=== PATIENT | male | born 1955 | race Caucasian/White ===

== ENCOUNTER → 2020-09-05 13:57 | Outpatient (CLI) | payer OTHER, SELFPAY | PROVIDERS: PCP Internal Medicine | DX: L12.1 Cicatricial pemphigoid (principal); Z51.81 Encounter for therapeutic drug level monitoring | CPT/HCPCS: 36415; 86769 ==

== ENCOUNTER → 2021-07-28 | Outpatient (CLI) | payer BC, SELFPAY ==
[2021-07-28 09:29] VITALS: BP 168/93; PULSE 92; RESP 16; TEMP 36.2; O2SAT 97; BMI 31.7
[2021-07-28] MEDS: 0.9% NaCl Peripheral Flush Adult/Peds IV (09:37)
[2021-07-28] MEDS: Acetaminophen 325 MG Tablet 650 MG PO (09:46)
[2021-07-28] MEDS: DiphenhydrAMINE 50 MG/ML Syringe 25 MG IV (09:46)
[2021-07-28] MEDS: 0.9% NaCl IVPB Med Flush (250 mL) 15 ML IV (10:20)
[2021-07-28] MEDS: Immune Globulin 20 gm Premixed Solution 43.5 BAG IV (10:25)
[2021-07-28] MEDS: Immune Globulin 20 gm Premixed Solution 218 BAG IV (12:34)
[2021-07-28] MEDS: Immune Globulin 20 gm Premixed Solution 305 BAG IV (13:45)
== END | disposition home or self-care (01) ==
LOC: MEDOUTP 08:58
PROVIDERS: PCP Internal Medicine
DX: L12.1 Cicatricial pemphigoid (principal); H02.015 Cicatricial entropion of left lower eyelid
CPT/HCPCS: 96365; 96366 ×3; 96375; J7050; A4216; J1568

== ENCOUNTER → 2021-07-29 | Outpatient (CLI) | payer BC, SELFPAY ==
[2021-07-29 09:06] VITALS: BP 159/87; PULSE 77; RESP 16; TEMP 36; O2SAT 98
[2021-07-29] MEDS: 0.9% NaCl Peripheral Flush Adult/Peds IV (09:10)
[2021-07-29] MEDS: 0.9% NaCl IVPB Med Flush (250 mL) 15 ML IV (09:26)
[2021-07-29] MEDS: DiphenhydrAMINE 50 MG/ML Syringe 25 MG IV (09:28)
[2021-07-29] MEDS: Immune Globulin 20 gm Premixed Solution 43.5 BAG IV (09:59)
[2021-07-29] MEDS: Immune Globulin 20 gm Premixed Solution 174 BAG IV (12:04)
[2021-07-29] MEDS: Immune Globulin 10 gm Premixed Solution 261 BAG IV (13:03)
[2021-07-29] MEDS: Immune Globulin 5 GM Premixed Solution 305 BAG IV (13:35)
[2021-07-29 13:47] VITALS: BP 153/86; PULSE 82; RESP 12; TEMP 35.9; O2SAT 97
== END | disposition home or self-care (01) ==
LOC: MEDOUTP 08:59
PROVIDERS: PCP Internal Medicine
DX: L12.1 Cicatricial pemphigoid (principal); H02.015 Cicatricial entropion of left lower eyelid
CPT/HCPCS: 96365; 96366 ×4; 96375; J7050; A4216; J1568

== ENCOUNTER → 2021-08-28 | Outpatient (CLI) | payer BC, SELFPAY ==
[2021-08-28 09:17] VITALS: BP 161/94; PULSE 84; RESP 12; TEMP 36.8; O2SAT 100; BMI 32.0
[2021-08-28] MEDS: 0.9% NaCl Peripheral Flush Adult/Peds IV (09:29)
[2021-08-28] MEDS: Acetaminophen 325 MG Tablet 650 MG PO (09:35)
[2021-08-28] MEDS: DiphenhydrAMINE 50 MG/ML Syringe 25 MG IV (09:36)
[2021-08-28] MEDS: 0.9% NaCl IVPB Med Flush (250 mL) 15 ML IV (09:45)
[2021-08-28] MEDS: Immune Globulin 20 gm Premixed Solution 43.5 BAG IV (10:11)
[2021-08-28] MEDS: Immune Globulin 20 gm Premixed Solution 174 BAG IV ×2 (12:13→13:25)
== END | disposition home or self-care (01) ==
PROVIDERS: PCP Internal Medicine
DX: L12.1 Cicatricial pemphigoid (principal); H02.015 Cicatricial entropion of left lower eyelid
CPT/HCPCS: 96365; 96366; J7050; A4216; J1568

== ENCOUNTER → 2021-08-29 | Outpatient (CLI) | payer BC, SELFPAY ==
[2021-08-29 09:03] VITALS: BP 154/76; RESP 14; TEMP 36.2; O2SAT 100; BMI 32.0
[2021-08-29] MEDS: 0.9% NaCl IVPB Med Flush (250 mL) 15 ML IV (09:21)
[2021-08-29] MEDS: DiphenhydrAMINE 50 MG/ML Syringe 25 MG IV (09:25)
[2021-08-29] MEDS: Immune Globulin 20 gm Premixed Solution 43.5 BAG IV (09:53)
[2021-08-29] MEDS: Immune Globulin 20 gm Premixed Solution 218 BAG IV (11:53)
[2021-08-29] MEDS: Immune Globulin 10 gm Premixed Solution 43.5 BAG IV (12:59)
[2021-08-29] MEDS: Immune Globulin 5 GM Premixed Solution 305 BAG IV (13:20)
== END | disposition home or self-care (01) ==
PROVIDERS: PCP Internal Medicine
DX: L12.1 Cicatricial pemphigoid (principal); H02.015 Cicatricial entropion of left lower eyelid
CPT/HCPCS: 96365; 96366; 96375; J7050; A4216; J1568

== ENCOUNTER → 2021-09-25 | Outpatient (CLI) | payer BC, SELFPAY ==
[2021-09-25] MEDS: 0.9% NaCl Peripheral Flush Adult/Peds IV (09:10)
[2021-09-25] MEDS: Acetaminophen 325 MG Tablet 650 MG PO (09:17)
[2021-09-25] MEDS: DiphenhydrAMINE 50 MG/ML Syringe 25 MG IV (09:20)
[2021-09-25] MEDS: 0.9% NaCl IVPB Med Flush (250 mL) 15 ML IV (09:20)
[2021-09-25 09:27] VITALS: BP 147/92; PULSE 71; RESP 16; TEMP 36.6; O2SAT 100; BMI 31.2
[2021-09-25] MEDS: Immune Globulin 20 gm Premixed Solution 43.5 BAG IV (10:02)
[2021-09-25] MEDS: Immune Globulin 20 gm Premixed Solution 174 BAG IV (12:00)
[2021-09-25] MEDS: Immune Globulin 20 gm Premixed Solution 261 BAG IV (13:04)
[2021-09-25 14:05] VITALS: BP 136/83; PULSE 75
== END | disposition home or self-care (01) ==
LOC: MEDOUTP 08:53
PROVIDERS: PCP Internal Medicine
DX: L12.1 Cicatricial pemphigoid (principal); H02.015 Cicatricial entropion of left lower eyelid
CPT/HCPCS: 96365; 96366; 96375; J7050; A4216; J1568

== ENCOUNTER → 2021-09-26 | Outpatient (CLI) | payer BC, SELFPAY ==
[2021-09-26 09:16] VITALS: BP 149/84; PULSE 74; RESP 16; TEMP 36.9; O2SAT 98
[2021-09-26] MEDS: 0.9% NaCl Peripheral Flush Adult/Peds IV (09:16)
[2021-09-26] MEDS: DiphenhydrAMINE 50 MG/ML Syringe 25 MG IV (09:24)
[2021-09-26] MEDS: Immune Globulin 20 gm Premixed Solution 43.5 BAG IV (09:50)
[2021-09-26] MEDS: Immune Globulin 20 gm Premixed Solution 174 BAG IV (11:49)
[2021-09-26] MEDS: Immune Globulin 10 gm Premixed Solution 261 BAG IV (12:49)
[2021-09-26] MEDS: Immune Globulin 5 GM Premixed Solution 305 BAG IV (13:14)
== END | disposition home or self-care (01) ==
LOC: MEDOUTP 08:57
PROVIDERS: PCP Internal Medicine
DX: L12.1 Cicatricial pemphigoid (principal); H02.015 Cicatricial entropion of left lower eyelid
CPT/HCPCS: 96365; 96366; J7050; A4216; J1568

== ENCOUNTER → 2021-10-23 | Outpatient (CLI) | payer BC, SELFPAY ==
[2021-10-23 09:15] VITALS: BP 150/81; PULSE 73; RESP 14; TEMP 36.2; O2SAT 99; BMI 31.7
[2021-10-23] MEDS: 0.9% NaCl Peripheral Flush Adult/Peds IV ×2 (09:15→13:48)
[2021-10-23] MEDS: 0.9% NaCl IVPB Med Flush (250 mL) 15 ML IV (09:21)
[2021-10-23] MEDS: Acetaminophen 325 MG Tablet 650 MG PO (09:22)
[2021-10-23] MEDS: DiphenhydrAMINE 50 MG/ML Syringe 25 MG IV (09:23)
[2021-10-23] MEDS: Immune Globulin 20 gm Premixed Solution 43.5 BAG IV (09:52)
[2021-10-23] MEDS: Immune Globulin 20 gm Premixed Solution 218 BAG IV (12:01)
[2021-10-23] MEDS: Immune Globulin 20 gm Premixed Solution 305 BAG IV (12:54)
== END | disposition home or self-care (01) ==
PROVIDERS: PCP Internal Medicine; Referring Provider Dermatology; Visit Provider Dermatology
DX: L12.1 Cicatricial pemphigoid (principal); H02.015 Cicatricial entropion of left lower eyelid
CPT/HCPCS: 96365; 96366 ×3; J7050; A4216; J1568

== ENCOUNTER → 2021-10-24 | Outpatient (CLI) | payer BC, SELFPAY ==
[2021-10-24] MEDS: 0.9% NaCl Peripheral Flush Adult/Peds IV (09:14)
[2021-10-24] MEDS: 0.9% NaCl IVPB Med Flush (250 mL) 15 ML IV (09:15)
[2021-10-24] MEDS: DiphenhydrAMINE 50 MG/ML Syringe 25 MG IV (09:15)
[2021-10-24 09:21] VITALS: BP 161/93; PULSE 68; RESP 16; TEMP 35.8; O2SAT 98; BMI 31.7
[2021-10-24] MEDS: Immune Globulin 20 gm Premixed Solution 43.5 BAG IV (09:43)
[2021-10-24] MEDS: Immune Globulin 20 gm Premixed Solution 174 BAG IV (11:47)
[2021-10-24] MEDS: Immune Globulin 10 gm Premixed Solution 261 BAG IV (12:49)
[2021-10-24] MEDS: Immune Globulin 5 GM Premixed Solution 348 BAG IV (13:17)
== END | disposition home or self-care (01) ==
PROVIDERS: PCP Internal Medicine; Referring Provider Dermatology; Visit Provider Dermatology
DX: L12.1 Cicatricial pemphigoid (principal); H02.015 Cicatricial entropion of left lower eyelid
CPT/HCPCS: 96365; 96366 ×4; 96375; J7050; A4216; J1568

== ENCOUNTER → 2021-11-20 | Outpatient (CLI) | payer MEDICARE, OTHER, SELFPAY ==
[2021-11-20] MEDS: 0.9% NaCl IVPB Med Flush (250 mL) 15 ML IV (10:01)
[2021-11-20] MEDS: 0.9% NaCl Peripheral Flush Adult/Peds IV (10:01)
[2021-11-20] MEDS: Acetaminophen 325 MG Tablet 650 MG PO (10:02)
[2021-11-20] MEDS: DiphenhydrAMINE 50 MG/ML Syringe 25 MG IV (10:14)
[2021-11-20 10:20] VITALS: BP 150/90; PULSE 80; RESP 16; TEMP 36.8; O2SAT 96; BMI 32.7
[2021-11-20] MEDS: Immune Globulin 20 gm Premixed Solution 43.5 BAG IV (10:37)
[2021-11-20] MEDS: Immune Globulin 20 gm Premixed Solution 174 BAG IV (12:37)
[2021-11-20] MEDS: Immune Globulin 20 gm Premixed Solution 261 BAG IV (13:35)
== END | disposition home or self-care (01) ==
PROVIDERS: PCP Internal Medicine; Referring Provider Dermatology; Visit Provider Dermatology
DX: L12.1 Cicatricial pemphigoid (principal); H02.015 Cicatricial entropion of left lower eyelid
CPT/HCPCS: 96365; 96366 ×3; 96375; J7050; A4216; J1568

== ENCOUNTER → 2021-11-21 | Outpatient (CLI) | payer MEDICARE, OTHER, SELFPAY ==
[2021-11-21] MEDS: DiphenhydrAMINE 50 MG/ML Syringe 25 MG IV (09:21)
[2021-11-21] MEDS: 0.9% NaCl Peripheral Flush Adult/Peds IV (09:21)
[2021-11-21] MEDS: 0.9% NaCl IVPB Med Flush (250 mL) 15 ML IV (09:21)
[2021-11-21 09:28] VITALS: BP 140/80; PULSE 75; RESP 16; TEMP 36.5; O2SAT 98; BMI 31.8
[2021-11-21] MEDS: Immune Globulin 20 gm Premixed Solution 43.5 BAG IV (09:55)
[2021-11-21] MEDS: Immune Globulin 20 gm Premixed Solution 218 BAG IV (11:58)
[2021-11-21] MEDS: Immune Globulin 10 gm Premixed Solution 305 BAG IV (13:02)
[2021-11-21] MEDS: Immune Globulin 5 GM Premixed Solution 348 BAG IV (13:27)
[2021-11-21 14:34] VITALS: BP 142/74; PULSE 81
[2021-11-21 14:44] LABS: Hematocrit 38.2 % (40-54); Hemoglobin 13.3 g/dL (13.0-16.5); Mean Corp Hgb Conc 34.8 g/dL (32-36); Mean Corpuscular Hgb 31.1 pg (27.0-32.0); Mean Corpuscular Volume 89.3 fL (80-94); Mean Platelet Vol. 10.9 fl (6.2-12.0); Platelet Count 184 K/mm3 (150-450); RBC Distribution Width CV 13.6 % (11.6-14.6); RBC Distribution Width SD 44.2 fl (35.1-43.9); Red Blood Count 4.28 M/mm3 (4.6-6.2); White Blood Count 3.5 K/mm3 (4.4-11.0)
[2021-11-21 15:35] LABS: ALB/GLOB Ratio 0.5 RATIO (0.9-2.4); AST(SGOT) 28 U/L (15-37); Alanine Aminotransfer ALT/SGPT 40 U/L (16-61); Albumin, Serum 3.2 g/dL (3.2-5.0); Alkaline Phosphatase 70 U/L (45-117); Anion Gap 7 (5-15); BUN 13 mg/dL (7-18); BUN/Creat Ratio 10.7 RATIO (10-20); Calcium,Total 8.5 mg/dL (8.5-10.1); Chloride 107 mmol/L (98-107); Creatinine, Serum 1.21 mg/dL (0.70-1.30); EST Glomerular Filtration Rate 64 mL/min (>60); Est Glom Filt Rate - Afr Amer 77 mL/min (>60); Estimated Creatinine Clearance 75.72 ml/min; Globulin 6.2 g/dL (2.2-4.2); Glucose 204 mg/dL (74-106); Potassium 3.8 mmol/L (3.5-5.1); Protein, Total 9.4 g/dL (6.4-8.2); Sodium Level 138 mmol/L (136-145)
[2021-11-26 00:06] LABS: QNTFERON TB Mitogen Value 3.36 IU/mL (.); QNTFERON TB Nil Value 0 IU/mL (.); QNTFERON TB1+ Ag Value 0.03 IU/mL (.); QNTFERON TB2+ Ag Value 0 IU/mL (.)
[2021-11-26 11:47] LABS: QNTIFERON TB Positive Criteria Negative (Negative)
== END | disposition home or self-care (01) ==
PROVIDERS: PCP Internal Medicine; Referring Provider Dermatology; Visit Provider Dermatology
DX: L12.1 Cicatricial pemphigoid (principal); Z51.81 Encounter for therapeutic drug level monitoring
CPT/HCPCS: 96365; 96366 ×3; 96375; 80053; 85027; 86480; J7040; J7050; A4216; J1568

== ENCOUNTER → 2021-12-11 | Outpatient (CLI) | payer MEDICARE, OTHER, SELFPAY ==
[2021-12-11] MEDS: 0.9% NaCl Peripheral Flush Adult/Peds IV (10:26)
[2021-12-11] MEDS: Acetaminophen 325 MG Tablet 650 MG PO (10:27)
[2021-12-11] MEDS: DiphenhydrAMINE 25 MG Capsule PO (10:27)
[2021-12-11 10:32] VITALS: BP 157/95; PULSE 87; RESP 16; TEMP 36.6; O2SAT 98; BMI 32.1
[2021-12-11] MEDS: predniSONE 20 MG Tablet 40 MG PO (11:35)
[2021-12-11] MEDS: 0.9% NaCl IVPB Med Flush (250 mL) 15 ML IV (11:47)
[2021-12-11 15:13] VITALS: BP 143/83; PULSE 78; TEMP 36.6
== END | disposition home or self-care (01) ==
PROVIDERS: PCP Internal Medicine; Referring Provider Dermatology; Visit Provider Dermatology
DX: L12.1 Cicatricial pemphigoid (principal)
CPT/HCPCS: 96413; J7050; A4216; Q5115

== ENCOUNTER → 2021-12-18 | Outpatient (CLI) | payer MEDICARE, OTHER, SELFPAY ==
[2021-12-18 09:03] VITALS: BP 145/89; PULSE 78; RESP 16; TEMP 36.1; O2SAT 98; BMI 32.1
[2021-12-18] MEDS: 0.9% NaCl Peripheral Flush Adult/Peds IV (09:25)
[2021-12-18] MEDS: 0.9% NaCl IVPB Med Flush (250 mL) 15 ML IV (09:25)
[2021-12-18] MEDS: DiphenhydrAMINE 50 MG/ML Syringe 25 MG IV (09:25)
[2021-12-18] MEDS: Immune Globulin 20 gm Premixed Solution 43.5 BAG IV (09:50)
[2021-12-18] MEDS: Immune Globulin 20 gm Premixed Solution 218 BAG IV (11:54)
[2021-12-18] MEDS: Immune Globulin 20 gm Premixed Solution 305 BAG IV (12:54)
== END | disposition home or self-care (01) ==
PROVIDERS: PCP Internal Medicine; Referring Provider Dermatology; Visit Provider Dermatology
DX: L12.1 Cicatricial pemphigoid (principal); H02.015 Cicatricial entropion of left lower eyelid
CPT/HCPCS: 96365; 96366 ×3; J7040; J7050; A4216; J1568

== ENCOUNTER → 2021-12-19 | Outpatient (CLI) | payer MEDICARE, OTHER, SELFPAY ==
[2021-12-19] MEDS: 0.9% NaCl Peripheral Flush Adult/Peds IV (09:09)
[2021-12-19] MEDS: 0.9% NaCl IVPB Med Flush (250 mL) 15 ML IV (09:10)
[2021-12-19] MEDS: DiphenhydrAMINE 50 MG/ML Syringe 25 MG IV (09:10)
[2021-12-19 09:16] VITALS: BP 149/86; PULSE 77; RESP 16; TEMP 36.4; O2SAT 99; BMI 31.7
[2021-12-19] MEDS: Immune Globulin 20 gm Premixed Solution 43.5 BAG IV (09:49)
[2021-12-19] MEDS: Immune Globulin 20 gm Premixed Solution 174 BAG IV (11:54)
[2021-12-19] MEDS: Immune Globulin 10 gm Premixed Solution 261 BAG IV (13:06)
[2021-12-19] MEDS: Immune Globulin 5 GM Premixed Solution 43.5 BAG IV (13:32)
[2021-12-19 14:31] VITALS: BP 149/78; PULSE 83; RESP 16; TEMP 36.3; O2SAT 100
== END | disposition home or self-care (01) ==
PROVIDERS: PCP Internal Medicine; Referring Provider Dermatology; Visit Provider Dermatology
DX: L12.1 Cicatricial pemphigoid (principal); H02.015 Cicatricial entropion of left lower eyelid
CPT/HCPCS: 96365; 96366 ×4; 96375; J7040; J7050; A4216; J1568

== ENCOUNTER → 2022-01-15 | Outpatient (CLI) | payer MEDICARE, OTHER, SELFPAY ==
[2022-01-15 09:08] VITALS: BP 163/93; PULSE 80; RESP 16; TEMP 37; O2SAT 97; BMI 31.8
[2022-01-15] MEDS: Acetaminophen 325 MG Tablet 650 MG PO (09:25)
[2022-01-15] MEDS: DiphenhydrAMINE 50 MG/ML Syringe 25 MG IV (09:50)
[2022-01-15] MEDS: Immune Globulin 20 gm Premixed Solution 43.5 BAG IV (10:03)
[2022-01-15] MEDS: 0.9% NaCl Peripheral Flush Adult/Peds IV (10:05)
[2022-01-15] MEDS: amLODIPine 5 MG Tablet PO (10:50)
[2022-01-15] MEDS: Immune Globulin 20 gm Premixed Solution 174 BAG IV (12:00)
[2022-01-15] MEDS: Immune Globulin 20 gm Premixed Solution 261 BAG IV (13:05)
[2022-01-15 14:37] VITALS: BP 135/82; PULSE 74; RESP 16; TEMP 36.8; O2SAT 97
== END | disposition home or self-care (01) ==
PROVIDERS: PCP Internal Medicine; Referring Provider Dermatology; Visit Provider Dermatology
DX: L12.1 Cicatricial pemphigoid (principal); H02.015 Cicatricial entropion of left lower eyelid
CPT/HCPCS: 96375; 96365; 96366 ×2; J7040; A4216; J1568

== ENCOUNTER → 2022-01-16 | Outpatient (CLI) | payer MEDICARE, OTHER, SELFPAY ==
[2022-01-16] MEDS: 0.9% NaCl Peripheral Flush Adult/Peds IV (09:03)
[2022-01-16] MEDS: 0.9% NaCl IVPB Med Flush (250 mL) 15 ML IV (09:05)
[2022-01-16] MEDS: DiphenhydrAMINE 50 MG/ML Syringe 25 MG IV (09:13)
[2022-01-16 09:17] VITALS: BP 173/87; PULSE 77; RESP 16; TEMP 36.5; O2SAT 97; BMI 32.1
[2022-01-16] MEDS: Immune Globulin 20 gm Premixed Solution 43.5 BAG IV (09:34)
[2022-01-16] MEDS: Immune Globulin 20 gm Premixed Solution 174 BAG IV (11:38)
[2022-01-16] MEDS: Immune Globulin 10 gm Premixed Solution 305 BAG IV (13:00)
[2022-01-16] MEDS: Immune Globulin 5 GM Premixed Solution 305 BAG IV (13:18)
== END | disposition home or self-care (01) ==
LOC: MEDOUTP 08:55
PROVIDERS: PCP Internal Medicine; Referring Provider Dermatology; Visit Provider Dermatology
DX: L12.1 Cicatricial pemphigoid (principal); H02.015 Cicatricial entropion of left lower eyelid
CPT/HCPCS: 96375; 96365; 96366 ×3; J7050; A4216; J1568

== ENCOUNTER 2022-02-12 08:57 | Outpatient (CLI) | payer MEDICARE, OTHER, SELFPAY ==
[2022-02-12] MEDS: 0.9% NaCl Peripheral Flush Adult/Peds IV (09:10)
[2022-02-12] MEDS: Acetaminophen 325 MG Tablet 650 MG PO (09:11)
[2022-02-12] MEDS: DiphenhydrAMINE 50 MG/ML Syringe 25 MG IV (09:22)
[2022-02-12 09:29] VITALS: BP 162/93; PULSE 80; RESP 14; TEMP 36.4; O2SAT 100; BMI 330.3
[2022-02-12] MEDS: Immune Globulin 20 gm Premixed Solution 43.5 BAG IV (09:37)
[2022-02-12] MEDS: Immune Globulin 20 gm Premixed Solution 218 BAG IV (11:46)
[2022-02-12] MEDS: Immune Globulin 10 gm Premixed Solution 305 BAG IV (13:06)
[2022-02-12] MEDS: Immune Globulin 10 gm Premixed Solution 348 BAG IV (13:29)
== END 2022-02-12 23:59 | disposition home or self-care (01) ==
LOC: MEDOUTP 08:57
PROVIDERS: PCP Internal Medicine; Referring Provider Dermatology; Visit Provider Dermatology
DX: L12.1 Cicatricial pemphigoid (principal); H02.015 Cicatricial entropion of left lower eyelid
CPT/HCPCS: 96365; 96366 ×4; 96375; J7040; A4216; J1568

== ENCOUNTER → 2022-02-13 | Outpatient (CLI) | payer MEDICARE, OTHER, SELFPAY ==
[2022-02-13 09:05] VITALS: BP 159/94; PULSE 76; RESP 16; TEMP 36.5; O2SAT 99; BMI 32.8
[2022-02-13] MEDS: DiphenhydrAMINE 50 MG/ML Syringe 25 MG IV (09:22)
[2022-02-13] MEDS: 0.9% NaCl Peripheral Flush Adult/Peds IV (09:28)
[2022-02-13] MEDS: Immune Globulin 20 gm Premixed Solution 43.5 BAG IV (09:41)
[2022-02-13] MEDS: Immune Globulin 20 gm Premixed Solution 218 BAG IV (11:43)
[2022-02-13] MEDS: Immune Globulin 10 gm Premixed Solution 261 BAG IV (12:41)
[2022-02-13] MEDS: Immune Globulin 5 GM Premixed Solution 305 BAG IV (13:06)
== END | disposition home or self-care (01) ==
LOC: MEDOUTP 08:54
PROVIDERS: PCP Internal Medicine; Referring Provider Dermatology; Visit Provider Dermatology
DX: L12.1 Cicatricial pemphigoid (principal); H02.015 Cicatricial entropion of left lower eyelid
CPT/HCPCS: 96365; 96366 ×4; 96375; J7040; A4216; J1568

== ENCOUNTER → 2022-02-27 | Outpatient (CLI) | payer MEDICARE, OTHER, SELFPAY ==
[2022-02-27 10:57] VITALS: BP 168/90; PULSE 87; RESP 16; TEMP 36.8; O2SAT 98
== END | disposition home or self-care (01) ==
LOC: MEDOUTP 10:51
PROVIDERS: PCP Internal Medicine; Referring Provider Internal Medicine; Visit Provider Internal Medicine
DX: D84.9 Immunodeficiency, unspecified (principal); Z91.89 Other specified personal risk factors, not elsewhere classified
CPT/HCPCS: 96372; M0220; Q0220

== ENCOUNTER → 2022-03-18 | Outpatient (CLI) | payer MEDICARE, OTHER, SELFPAY ==
[2022-03-18] MEDS: 0.9% NaCl Peripheral Flush Adult/Peds IV (09:10)
[2022-03-18] MEDS: DiphenhydrAMINE 50 MG/ML Syringe 25 MG IV (09:25)
[2022-03-18] MEDS: Acetaminophen 325 MG Tablet 650 MG PO (09:26)
[2022-03-18 09:33] VITALS: BP 156/103; PULSE 91; RESP 16; TEMP 36.8; O2SAT 97; BMI 31.8
[2022-03-18] MEDS: Immune Globulin 20 gm Premixed Solution 43.5 BAG IV (09:59)
[2022-03-18] MEDS: Immune Globulin 20 gm Premixed Solution 218 BAG IV (12:11)
[2022-03-18] MEDS: Immune Globulin 20 gm Premixed Solution 261 BAG IV (13:08)
== END | disposition home or self-care (01) ==
PROVIDERS: PCP Internal Medicine; Referring Provider Dermatology; Visit Provider Dermatology
DX: L12.1 Cicatricial pemphigoid (principal); H02.015 Cicatricial entropion of left lower eyelid
CPT/HCPCS: 96365; 96366 ×3; 96375; J7040; A4216; J1568

== ENCOUNTER → 2022-03-19 | Outpatient (CLI) | payer MEDICARE, OTHER, SELFPAY ==
[2022-03-19] MEDS: 0.9% NaCl Peripheral Flush Adult/Peds IV (09:14)
[2022-03-19] MEDS: DiphenhydrAMINE 50 MG/ML Syringe 25 MG IV (09:21)
[2022-03-19 09:26] VITALS: BP 173/88; PULSE 94; RESP 16; TEMP 36.6; O2SAT 100; BMI 32.3
[2022-03-19] MEDS: Immune Globulin 20 gm Premixed Solution 43.5 BAG IV (09:41)
[2022-03-19] MEDS: Immune Globulin 20 gm Premixed Solution 174 BAG IV (11:43)
[2022-03-19] MEDS: Immune Globulin 10 gm Premixed Solution 305 BAG IV (12:44)
[2022-03-19] MEDS: Immune Globulin 5 GM Premixed Solution 305 BAG IV (13:11)
[2022-03-19 14:13] VITALS: BP 137/77; PULSE 72; RESP 16; TEMP 36.6; O2SAT 100
== END | disposition home or self-care (01) ==
LOC: MEDOUTP 08:56
PROVIDERS: PCP Internal Medicine; Referring Provider Dermatology; Visit Provider Dermatology
DX: L12.1 Cicatricial pemphigoid (principal); H02.015 Cicatricial entropion of left lower eyelid
CPT/HCPCS: 96365; 96366 ×4; J7040; A4216; J1568

== ENCOUNTER 2022-07-09 08:53 | Outpatient (CLI) | payer MEDICARE, OTHER, SELFPAY ==
[2022-07-09] MEDS: DiphenhydrAMINE 50 MG/ML Syringe 25 MG IV (09:23)
[2022-07-09] MEDS: Hydrocortisone Sod Succinate 100 MG/2 ML Vial IV (09:28)
[2022-07-09 09:35] VITALS: BP 170/81; PULSE 91; RESP 16; TEMP 36; O2SAT 98; BMI 31.8
[2022-07-09] MEDS: Immune Globulin 20 gm Premixed Solution 43.5 BAG IV (09:52)
[2022-07-09] MEDS: Immune Globulin 20 gm Premixed Solution 218 BAG IV (11:53)
[2022-07-09] MEDS: Immune Globulin 20 gm Premixed Solution 261 BAG IV (12:52)
[2022-07-09] MEDS: Acetaminophen 325 MG Tablet 650 MG PO (13:23)
[2022-07-09 14:27] VITALS: BP 135/72; PULSE 83; TEMP 36.2
== END 2022-07-09 08:54 | disposition home or self-care (01) ==
LOC: MEDOUTP 08:53
PROVIDERS: PCP Internal Medicine; Referring Provider Dermatology; Visit Provider Dermatology
DX: L12.1 Cicatricial pemphigoid (principal)
CPT/HCPCS: 96365; 96366 ×3; 96375 ×2; J7040; J1568

== ENCOUNTER 2022-07-10 08:56 | Outpatient (CLI) | payer MEDICARE, OTHER, SELFPAY ==
[2022-07-10 09:02] VITALS: BP 159/85; PULSE 95; RESP 16; TEMP 36.5; O2SAT 98
[2022-07-10] MEDS: 0.9% NaCl Peripheral Flush Adult/Peds IV (09:12)
[2022-07-10] MEDS: Hydrocortisone Sod Succinate 100 MG/2 ML Vial IV (09:16)
[2022-07-10] MEDS: DiphenhydrAMINE 50 MG/ML Syringe 25 MG IV (09:20)
[2022-07-10] MEDS: Immune Globulin 20 gm Premixed Solution 43.5 BAG IV (09:48)
[2022-07-10] MEDS: Immune Globulin 20 gm Premixed Solution 218 BAG IV (11:57)
[2022-07-10] MEDS: Immune Globulin 10 gm Premixed Solution 305 BAG IV (13:01)
[2022-07-10] MEDS: Immune Globulin 5 GM Premixed Solution 348 BAG IV (13:27)
== END 2022-07-10 08:57 | disposition home or self-care (01) ==
LOC: MEDOUTP 08:56
PROVIDERS: PCP Internal Medicine; Referring Provider Dermatology; Visit Provider Dermatology
DX: L12.1 Cicatricial pemphigoid (principal)
CPT/HCPCS: 96365; 96366 ×3; 96375; J7040; A4216; J1568

== ENCOUNTER → 2022-10-13 | Outpatient (CLI) | payer MEDICARE, OTHER, SELFPAY | END | disposition home or self-care (01) | LOC: LAB 14:27 | PROVIDERS: PCP Internal Medicine; Referring Provider Dermatology; Visit Provider Dermatology | DX: L12.1 Cicatricial pemphigoid (principal) | CPT/HCPCS: 36415; 86769 ==

== ENCOUNTER 2024-11-06 09:44 | Day surgery (SDC) | payer MEDICARE, OTHER, SELFPAY ==
--- NOTE | 2024-11-02 17:01 | PAT.ANESEVAL ---
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 When Was Last Pacemaker Check QUESTION #4 FULL TEXT: You/Your Family Experience fever (hyperthermia) with Anesthesia Last Oral Intake Last Oral intake: Last Oral Intake NPO since Meds taken in AM with sips of water? 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 Female No 11/02/24 15:03 HX of Motion Sickness No 11/02/24 15:03 HX of N/V After Surgery Yes 11/02/24 15:03 Non-Smoker Yes 11/02/24 15:03 Duration of Surgery greater No 11/02/24 15:03 than 60 minutes Number of Risk Factors 2 11/02/24 15:03 PONV Score Moderate Risk 11/02/24 15:03 Height & Weight Height & Weight: Anesthesia: Height & Weight Height 6 ft 4 in 07/10/22 09:02 Respiratory Assessment Respiratory Assessment - tape edge machine operator: Respiratory Tract Infection Hx - tape edge machine operator Hx Respiratory Tract Infection No 11/02/24 15:03 STOP Sleep Apnea STOP Sleep Apnea - tape edge machine operator: STOP Sleep Apnea - tape edge machine operator Hx Hypertension Yes: CONTROLLED WITH MED 11/02/24 15:03 Hx Sleep Apnea Yes 11/02/24 15:03 CPAP Yes 11/02/24 15:03 BIPAP No 11/02/24 15:03 Do you snore loudly (louder than talking or can be heard Do you often feel tired/ fatigued/ sleepy during daytime? Has anyone observed you stop breathing during sleep? STOP Results Positive 11/02/24 15:03 QUESTION #5 FULL TEXT : Do you snore loudly (louder than talking or can be heard through closed doors)? 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 confused, unrespo /Reproduction History /Reproductive History - tape edge machine operator: /Reproductive Hx- tape edge machine operator Hx Now No 11/02/24 15:03 Gestational Age (in weeks): EDC: Hx Hx Para Hx Section SAB No 11/02/24 15:03 PFSH Medical History (Updated 11/02/24 @ 15:20 by Kavita Ba) Wears contact lenses Alcohol use Arthritis Anemia High cholesterol Back pain Injury of head and neck Syncope Dietary restriction History of atrial fibrillation History of ulceration CPAP (continuous positive airway pressure) dependence Non-smoker Leg cramps History of pain when walking History of edema History of cardioversion History of echocardiogram History of stress test Cardiology follow-up encounter Hx of dislocation of ankle Afib HLD (hyperlipidemia) HTN (hypertension) Cicatricial entropion Ocular pemphigoid Trichiasis Home Medications ?Medication ?Instructions ?Recorded ?Last Taken ?Type apixaban 5 mg tablet 5 mg PO BID 07/28/21 11/02/24 History cyclosporine 0.05 % eye drops in a 1 drp EACH EYE Q12H 07/28/21 Unknown History dropperette fluticasone propionate 50 2 spray intranasal DAILY 07/28/21 Unknown History mcg/actuation nasal spray,suspension ipratropium bromide 21 mcg (0.03 2 spray intranasal TID PRN Runny 05/16/22 Unknown History %) nasal spray Nose lifitegrast 5 % eye drops in a 1 drp EACH EYE BID 07/28/21 Unknown History dropperette [id number]-ugjkzvsp-lnjwao 1 tab PO DAILY 07/28/21 Unknown History tablet (Multivitamin 50 Plus tablet) pravastatin 80 mg tablet 80 mg PO QHS 07/28/21 Unknown History white petrolatum-mineral oil 57.3 1 applic EACH EYE QHS 07/28/21 Unknown History %-42.5 % eye ointment CPAP - Continuous Positive Airway 11/02/24 Unknown History Pressure([facility] INFORMATIONAL USE ONLY) amlodipine 2.5 mg tablet 2.5 mg PO DAILY 11/02/24 Unknown History losartan 25 mg tablet 25 mg PO DAILY 11/02/24 Unknown History perfluorohexyloctane (PF) 100 % 1 drp ophthalmic (eye) BID 11/02/24 Unknown History eye drops Allergy/AdvReac Type Severity Reaction Status Date / Time Tetracyclines Allergy Intermediate Rash Verified 11/02/24 14:59 grass pollen Allergy Other Verified 11/02/24 14:59 neomycin Allergy Rash Verified 11/02/24 14:59 pollen extracts Allergy Other Verified 11/02/24 14:59 polymyxin B Allergy Rash Verified 11/02/24 14:59 Surgical History (Updated 11/02/24 @ 15:20 by Kavita Ba) Hx of colonoscopy Hx of tonsillectomy Hx of left knee surgery Social History Smoking Status: Never smoker Audit: Pertinent Findings Pertinent Findings EKG Perinent findings: EKG shows atrial fibrillation. Consult pertinent findings: Patient is seen by cardiology. The last note on 08/16/2024 discussed the patient has permanent atrial fibrillation that is nonvalvular, controlled, and asymptomatic. Patient is on Eliquis. Recommendation Anesthesia Recommendation Anesthesia recommendation: F/U recommended (Patient needs note stating he is okay to be off Eliquis for 72 hours. If GI is okay with the patient on Eliquis may proceed to the procedure.)
--- NOTE | 2024-11-03 11:41 | PAT.ANESEVAL ---
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 When Was Last Pacemaker Check QUESTION #4 FULL TEXT: You/Your Family Experience fever (hyperthermia) with Anesthesia Last Oral Intake Last Oral intake: Last Oral Intake NPO since Meds taken in AM with sips of water? 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 - actionscript developer Female No 11/02/24 15:03 HX of Motion Sickness No 11/02/24 15:03 HX of N/V After Surgery Yes 11/02/24 15:03 Non-Smoker Yes 11/02/24 15:03 Duration of Surgery greater No 11/02/24 15:03 than 60 minutes Number of Risk Factors 2 11/02/24 15:03 PONV Score Moderate Risk 11/02/24 15:03 Height & Weight Height & Weight: Anesthesia: Height & Weight Height 6 ft 4 in 07/10/22 09:02 Respiratory Assessment Respiratory Assessment - actionscript developer: Respiratory Tract Infection Hx - actionscript developer Hx Respiratory Tract Infection No 11/02/24 15:03 STOP Sleep Apnea STOP Sleep Apnea - actionscript developer: STOP Sleep Apnea - actionscript developer Hx Hypertension Yes: CONTROLLED WITH MED 11/02/24 15:03 Hx Sleep Apnea Yes 11/02/24 15:03 CPAP Yes 11/02/24 15:03 BIPAP No 11/02/24 15:03 Do you snore loudly (louder than talking or can be heard Do you often feel tired/ fatigued/ sleepy during daytime? Has anyone observed you stop breathing during sleep? STOP Results Positive 11/02/24 15:03 QUESTION #5 FULL TEXT : Do you snore loudly (louder than talking or can be heard through closed doors)? 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 confused, unrespo /Reproduction History /Reproductive History - actionscript developer: /Reproductive Hx- actionscript developer Hx Now No 11/02/24 15:03 Gestational Age (in weeks): EDC: Hx Hx Para Hx Section SAB No 11/02/24 15:03 PFSH Medical History (Updated 11/02/24 @ 15:20 by Kavita Ba) Wears contact lenses Alcohol use Arthritis Anemia High cholesterol Back pain Injury of head and neck Syncope Dietary restriction History of atrial fibrillation History of ulceration CPAP (continuous positive airway pressure) dependence Non-smoker Leg cramps History of pain when walking History of edema History of cardioversion History of echocardiogram History of stress test Cardiology follow-up encounter Hx of dislocation of ankle Afib HLD (hyperlipidemia) HTN (hypertension) Cicatricial entropion Ocular pemphigoid Trichiasis Home Medications ?Medication ?Instructions ?Recorded ?Last Taken ?Type apixaban 5 mg tablet 5 mg PO BID 07/28/21 11/02/24 History cyclosporine 0.05 % eye drops in a 1 drp EACH EYE Q12H 07/28/21 Unknown History dropperette fluticasone propionate 50 2 spray intranasal DAILY 07/28/21 Unknown History mcg/actuation nasal spray,suspension ipratropium bromide 21 mcg (0.03 2 spray intranasal TID PRN Runny 05/16/22 Unknown History %) nasal spray Nose lifitegrast 5 % eye drops in a 1 drp EACH EYE BID 07/28/21 Unknown History dropperette qbreulrjqzka-ojdxyuhw-zasuzl 1 tab PO DAILY 07/28/21 Unknown History tablet (Multivitamin 50 Plus tablet) pravastatin 80 mg tablet 80 mg PO QHS 07/28/21 Unknown History white petrolatum-mineral oil 57.3 1 applic EACH EYE QHS 07/28/21 Unknown History %-42.5 % eye ointment CPAP - Continuous Positive Airway 11/02/24 Unknown History Pressure([facility] INFORMATIONAL USE ONLY) amlodipine 2.5 mg tablet 2.5 mg PO DAILY 11/02/24 Unknown History losartan 25 mg tablet 25 mg PO DAILY 11/02/24 Unknown History perfluorohexyloctane (PF) 100 % 1 drp ophthalmic (eye) BID 11/02/24 Unknown History eye drops Allergy/AdvReac Type Severity Reaction Status Date / Time Tetracyclines Allergy Intermediate Rash Verified 11/02/24 14:59 grass pollen Allergy Other Verified 11/02/24 14:59 neomycin Allergy Rash Verified 11/02/24 14:59 pollen extracts Allergy Other Verified 11/02/24 14:59 polymyxin B Allergy Rash Verified 11/02/24 14:59 Surgical History (Updated 11/02/24 @ 15:20 by Kavita Ba) Hx of colonoscopy Hx of tonsillectomy Hx of left knee surgery Social History Smoking Status: Never smoker Audit: Pertinent Findings HISTORY of Pertinent Findings History of Pertinent Findings: EKG Pertinent Findings EKG Perinent findings EKG shows atrial 11/02/24 17:06 fibrillation. Consult Pertinent Findings Consult pertinent findings Patient is seen by 11/02/24 17:06 cardiology. The last note on 08/16/2024 discussed the patient has permanent atrial fibrillation that is nonvalvular, controlled, and asymptomatic. Patient is on Eliquis. Recommendation Anesthesia Recommendation Anesthesia recommendation: OPTIMIZED for anesthesia (November 03, 2024. Note from cardiology office states that the patient may hold apixaban for 48 hours prior to colonoscopy.)
[2024-11-06] VITALS (8 sets, daily range): BP systolic 103–164; BP diastolic 70–99; PULSE 61–88; RESP 14–20; TEMP 36.1–36.6; O2SAT 95–100; BMI 31.9
--- NOTE | 2024-11-06 10:02 | PCM.HP.STD ---
[facility] - General General Date of Admission: 11/06/24 Date of Service: 11/06/24 Chief Complaint: Screening colonoscopy HPI Narrative NATHAN CARTER, is a 68 M who presents for screening colonoscopy. He reports having started with [facility] but was forwarded for an office appointment due to his irregular heart rhythm. He is in chronic atrial fibrillation, anticoagulated with apixaban, has a history of receiving several chemical and electrical cardioversions since 2011. His rate is controlled, he tolerates exercise very well. He uses a CPAP nightly, reports a daily to twice daily complete BM without difficulties or concerns. He reports the occasional hemorrhoid and that his last colonoscopy was done 10 years ago with no findings. He is only recently removed from status of being immunosuppressed. 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 He denies difficulty chewing and swallowing, cough, throat clearing, reflux, abdominal pain, excess gas, hematochezia, and melena. [facility] Medical History Wears contact lenses Alcohol use Arthritis Anemia High cholesterol Back pain Injury of head and neck Syncope Dietary restriction History of atrial fibrillation History of ulceration CPAP (continuous positive airway pressure) dependence Non-smoker Leg cramps History of pain when walking History of edema History of cardioversion History of echocardiogram History of stress test Cardiology follow-up encounter Hx of dislocation of ankle Afib HLD (hyperlipidemia) HTN (hypertension) Cicatricial entropion Ocular pemphigoid Trichiasis Home Medications ?Medication ?Instructions ?Recorded ?Last Taken ?Type apixaban 5 mg tablet 5 mg PO BID 07/28/21 11/02/24 History cyclosporine 0.05 % eye drops in a 1 drp EACH EYE Q12H 07/28/21 Unknown History dropperette fluticasone propionate 50 2 spray intranasal DAILY 07/28/21 Unknown History mcg/actuation nasal spray,suspension ipratropium bromide 21 mcg (0.03 2 spray intranasal TID PRN Runny 07/28/21 Unknown History %) nasal spray Nose lifitegrast 5 % eye drops in a 1 drp EACH EYE BID 07/28/21 Unknown History dropperette uevbjgfpybmn-okugsdbr-pyiwos 1 tab PO DAILY 07/28/21 Unknown History tablet (Multivitamin 50 Plus tablet) pravastatin 80 mg tablet 80 mg PO QHS 07/28/21 Unknown History white petrolatum-mineral oil 57.3 1 applic EACH EYE QHS 07/28/21 Unknown History %-42.5 % eye ointment CPAP - Continuous Positive Airway 11/02/24 Unknown History Pressure([facility] INFORMATIONAL USE ONLY) amlodipine 2.5 mg tablet 2.5 mg PO DAILY 11/02/24 Unknown History losartan 25 mg tablet 25 mg PO DAILY 11/02/24 Unknown History perfluorohexyloctane (PF) 100 % 1 drp ophthalmic (eye) BID 11/02/24 Unknown History eye drops Allergy/AdvReac Type Severity Reaction Status Date / Time Tetracyclines Allergy Intermediate Rash Verified 11/02/24 14:59 grass pollen Allergy Other Verified 11/02/24 14:59 neomycin Allergy Rash Verified 11/02/24 14:59 pollen extracts Allergy Other Verified 11/02/24 14:59 polymyxin B Allergy Rash Verified 11/02/24 14:59 Surgical History Hx of colonoscopy Hx of tonsillectomy Hx of left knee surgery Social History Smoking Status: Never smoker ROS Constitutional Constitutional: Denies fatigue, fever(s), poor appetite, weight gain or weight loss Gastrointestinal Gastrointestinal: Denies belching, bloating, change in bowel habits, change in stool character, chewing difficulty, coffee ground emesis, constipation, cramping, diarrhea, dyspepsia, dysphagia, early satiety, excessive flatus, fecal incontinence, heartburn, hematemesis, hematochezia, hemorrhoids, loose stools, melena, nausea, odynophagia, rectal bleeding, tenesmus, vomiting or weight changes Physical Exam Const alert, oriented x3, no apparent distress and healthy appearing General Appearance: cooperative GI normal to inspection, nondistended, normoactive bowel sounds, soft to palpation, non-tender and non-distended Percussion: normal to percussion Rectal Exam: deferred Assessment & Plan Assessment/Plan (1) Encounter for screening colonoscopy: PLAN: Assessment and Plan Assessment and Plan (1) Encounter for screening colonoscopy: Status: Acute Plan NATHAN CARTER, is a 68 M who presents to the office today for establishment with [facility] regarding encounter for screening colonoscopy. He reports having started with [facility] but was forwarded for an office appointment due to his irregular heart rhythm. He is in chronic atrial fibrillation, anticoagulated with apixaban, has a history of receiving several chemical and electrical cardioversions since 2011. His rate is controlled, he tolerates exercise very well. obtain cardiac clearance schedule screening colonoscopy office FU PRN
[2024-11-06] MEDS: Lactated Ringers 1,000 ML 15 ML IV (10:22)
--- NOTE | 2024-11-06 10:49 | PCM.PRE.AN2 ---
ASA Classification* ASA Classification ASA Classification: 3 Assessment & Plan Anesthesia* Anesthesia Assessment Anesthesia Assessment: Discussed sedation and/or anesthesia options, risks, benefits, and alternatives with patient/parents/legal guardian/POA. Questions invited. The patient/parents/legal guardian/POA seems to understand and agrees to proceed with anesthesia plan. Reviewed the physical assessment, medical history, allergy history and patient home medications list prior to surgery/procedure/anesthetic and documented any changes. Performed airway and anesthesia risk assessments. Anesthesia Type Anesthesia Type: MAC History Source History Obtained from:: Patient and Chart Anesthesia Focused Assessment* Temperature: 97.8 F Pulse Rate: 88 Blood Pressure: 164/99 Respiratory Rate: 14 Pulse Ox: 100 Oxygen Delivery Method: Room Air Airway Assessment Mouth opens: >3 cm Mallampati Score: III Teeth Condition: Intact Neck Range of motion (ROM): Full ROM Labs Anesthesia Preop lab: CBC WBC 3.5 K/mm3 (4.4-11.0) L 11/21/21 14:30 11/21/21 RBC 4.28 M/mm3 (4.6-6.2) L 11/21/21 14:30 11/21/21 Hgb 13.3 g/dL (13.0-16.5) 11/21/21 14:30 11/21/21 Hct 38.2 % (40-54) L 11/21/21 14:30 11/21/21 Plt Count 184 K/mm3 (150-450) 11/21/21 14:30 11/21/21 CHEMISTRY Potassium 3.8 mmol/L (3.5-5.1) 11/21/21 14:30 11/21/21 Sodium 138 mmol/L (136-145) 11/21/21 14:30 11/21/21 BUN 13 mg/dL (7-18) 11/21/21 14:30 11/21/21 Creatinine 1.21 mg/dL (0.70-1.30) 11/21/21 14:30 11/21/21 Glucose 204 mg/dL (74-106) H 11/21/21 14:30 11/21/21 COAG PT 13.3 SECONDS (11.9-14.4) 02/26/12 08:14 02/26/12 Pre-Assessment Diagnosis/Proposed Procedure Planned Operative Procedure(s): COLONOSCOPY Anesthesia History Anesthesia History - automatic glove turner and former: Anesthesia History - automatic glove turner and former Hx Hospitalization No 11/02/24 15:03 Any Problems With Anesthesia Yes: 2000 DRY HEAVES 11/02/24 15:03 Cholinesterase deficiency No 11/02/24 15:03 You/Your Family Experience No 11/02/24 15:03 fever (hyperthermia) with Relationship Recent Exposure to Contagious No 11/06/24 10:10 Disease Does patient have nerve No 11/02/24 15:03 stimulator Patient instructed to have device shut off --Does patient have Pacemaker No 11/06/24 10:10 or ICD? When Was Last Pacemaker Check QUESTION #4 FULL TEXT: You/Your Family Experience fever (hyperthermia) with Anesthesia Last Oral Intake Last Oral intake: Last Oral Intake NPO since 06:10 11/06/24 10:10 Meds taken in AM with sips of Yes 11/06/24 10:10 water? Meds patient instructed to take am of surgery PONV PONV - automatic glove turner and former: PONV - automatic glove turner and former Female No 11/02/24 15:03 HX of Motion Sickness No 11/02/24 15:03 HX of N/V After Surgery Yes 11/02/24 15:03 Non-Smoker Yes 11/02/24 15:03 Duration of Surgery greater No 11/02/24 15:03 than 60 minutes Number of Risk Factors 2 11/02/24 15:03 PONV Score Moderate Risk 11/02/24 15:03 Height & Weight Height & Weight: Anesthesia: Height & Weight Height 6 ft 3 in 11/06/24 10:10 Weight: 116 kg 11/06/24 10:10 Body Mass Index (BMI) 31.9 11/06/24 10:10 Respiratory Assessment Respiratory Assessment - automatic glove turner and former: Respiratory Tract Infection Hx - automatic glove turner and former Hx Respiratory Tract Infection No 11/02/24 15:03 STOP Sleep Apnea STOP Sleep Apnea - automatic glove turner and former: STOP Sleep Apnea - automatic glove turner and former Hx Hypertension Yes: CONTROLLED WITH MED 11/02/24 15:03 Hx Sleep Apnea Yes 11/02/24 15:03 CPAP Yes 11/02/24 15:03 BIPAP No 11/02/24 15:03 Do you snore loudly (louder than talking or can be heard Do you often feel tired/ fatigued/ sleepy during daytime? Has anyone observed you stop breathing during sleep? STOP Results Positive 11/02/24 15:03 QUESTION #5 FULL TEXT : Do you snore loudly (louder than talking or can be heard through closed doors)? 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 confused, unrespo /Reproduction History /Reproductive History - automatic glove turner and former: /Reproductive Hx- automatic glove turner and former Hx Now No 11/02/24 15:03 Gestational Age (in weeks): EDC: Hx Hx Para Hx Section SAB No 11/02/24 15:03 Active Medications Active Medications: Current Medications Generic Name Dose Route Start Last Admin Trade Name Freq PRN Reason Stop Dose Admin Lactated Ringer's 1,000 mls @ 15 mls/hr 11/06/24 10:00 11/06/24 10:22 IV 15 mls/hr .Q48H RAMIRO Administration PFSH Medical History Wears contact lenses Alcohol use Arthritis Anemia High cholesterol Back pain Injury of head and neck Syncope Dietary restriction History of atrial fibrillation History of ulceration CPAP (continuous positive airway pressure) dependence Non-smoker Leg cramps History of pain when walking History of edema History of cardioversion History of echocardiogram History of stress test Cardiology follow-up encounter Hx of dislocation of ankle Afib HLD (hyperlipidemia) HTN (hypertension) Cicatricial entropion Ocular pemphigoid Trichiasis Home Medications ?Medication ?Instructions ?Recorded ?Last Taken ?Type apixaban 5 mg tablet 5 mg PO BID 07/28/21 11/02/24 History cyclosporine 0.05 % eye drops in a 1 drp EACH EYE Q12H 07/28/21 Unknown History dropperette fluticasone propionate 50 2 spray intranasal DAILY 07/28/21 Unknown History mcg/actuation nasal spray,suspension ipratropium bromide 21 mcg (0.03 2 spray intranasal TID PRN Runny 07/28/21 Unknown History %) nasal spray Nose lifitegrast 5 % eye drops in a 1 drp EACH EYE BID 07/28/21 Unknown History dropperette [id number]-[id number]-cgfqif 1 tab PO DAILY 07/28/21 Unknown History tablet (Multivitamin 50 Plus tablet) pravastatin 80 mg tablet 80 mg PO QHS 07/28/21 Unknown History white petrolatum-mineral oil 57.3 1 applic EACH EYE QHS 07/28/21 Unknown History %-42.5 % eye ointment CPAP - Continuous Positive Airway 11/02/24 Unknown History Pressure([facility] INFORMATIONAL USE ONLY) amlodipine 2.5 mg tablet 2.5 mg PO DAILY 11/02/24 11/06/24 07:10 History losartan 25 mg tablet 25 mg PO DAILY 11/02/24 11/06/24 07:10 History perfluorohexyloctane (PF) 100 % 1 drp ophthalmic (eye) BID 11/02/24 Unknown History eye drops Allergy/AdvReac Type Severity Reaction Status Date / Time Tetracyclines Allergy Intermediate Rash Verified 11/06/24 10:08 grass pollen Allergy Other Verified 11/06/24 10:08 neomycin Allergy Rash Verified 11/06/24 10:08 pollen extracts Allergy Other Verified 11/06/24 10:08 polymyxin B Allergy Rash Verified 11/06/24 10:08 Surgical History Hx of colonoscopy Hx of tonsillectomy Hx of left knee surgery Social History Smoking Status: Never smoker Review of Systems (Anesthesia) ROS Narrative System reviewed and no additional complaints, except as documented.
--- NOTE | 2024-11-06 11:59 | OP.COLON_ITS ---
Patient Name: Bean Bermudez Procedure Date: 11/06/2024 11:33 AM Date of : 1955 Age: 68 Procedure: Colonoscopy Indications: Screening for colorectal malignant neoplasm Providers: Singh Jorge DO Medicines: Monitored Anesthesia Care Patient Profile: This is a 68 year old male. Refer to note in patient chart for documentation of history and physical. Last Colonoscopy: more than 10 years ago. Complications: No immediate complications. Procedure: Pre-Anesthesia Assessment: - Prior to the procedure, a History and Physical was performed, and patient medications and allergies were reviewed. The patient is competent. The risks and benefits of the procedure and the sedation options and risks were discussed with the patient. All questions were answered and informed consent was obtained. Patient identification and proposed procedure were verified by the physician in the pre-procedure area. Mental Status Examination: alert and oriented. Airway Examination: normal oropharyngeal airway and neck mobility. Respiratory Examination: clear to auscultation. CV Examination: normal. Prophylactic Antibiotics: The patient does not require prophylactic antibiotics. Prior Anticoagulants: The patient has taken no anticoagulant or antiplatelet agents except for NSAID medication. ASA Grade Assessment: II - A patient with mild systemic disease. After reviewing the risks and benefits, the patient was deemed in satisfactory condition to undergo the procedure. The anesthesia plan was to use monitored anesthesia care (MAC). Immediately prior to administration of medications, the patient was re-assessed for adequacy to receive sedatives. The heart rate, respiratory rate, oxygen saturations, blood pressure, adequacy of pulmonary ventilation, and response to care were monitored throughout the procedure. The physical status of the patient was re-assessed after the procedure. After I obtained informed consent, the scope was passed under direct vision. Throughout the procedure, the patient's blood pressure, pulse, and oxygen saturations were monitored continuously. The pediatric colonoscope was introduced through the anus and advanced to the cecum, identified by the appendiceal orifice, ileocecal valve and palpation. The colonoscopy was performed without difficulty. The patient tolerated the procedure well. The quality of the bowel preparation was adequate. The ileocecal valve, appendiceal orifice, and rectum were photographed. Scope In: 11:43:54 AM Scope Withdrawal Time 0 hours 6 minutes 35 seconds Scope Out: 11:54:56 AM Total Procedure Duration Time 0 hours 11 minutes 2 seconds Findings: The perianal and digital rectal examinations were normal. A few small-mouthed diverticula were found in the sigmoid colon. The exam was otherwise without abnormality on direct and retroflexion views. Impression: - Diverticulosis in the sigmoid colon. - The examination was otherwise normal on direct and retroflexion views. - No specimens collected. Recommendation: - Discharge patient to home. - Resume previous diet. - Continue present medications. - Repeat colonoscopy in 10 years for screening purposes. Procedure Code(s): --- Professional --- G0121, Colorectal cancer screening; colonoscopy on individual not meeting criteria for high risk CPT copyright 2021 [employer]. All rights reserved. The codes documented in this report are preliminary and upon certified medical coder review may be revised to meet current compliance requirements. Singh Jorge DO 11/06/2024 11:58:49 AM This report has been signed electronically. Number of Addenda: 0 Note Initiated On: 11/06/2024 11:33 AM
--- NOTE | 2024-11-06 12:04 | PCM.POST.ANE ---
Anesthesia: Postop Eval I Current Vital Signs Temperature: 97 F Pulse Rate: 67 Blood Pressure: 108/70 Respiratory Rate: 16 Pulse Ox: 97 Oxygen Delivery Method: Room Air Assessment Airway patent: Yes Spontaneous unlabored respirations: Yes Mental status: Awake and Calm nausea: No Vomiting: No Anesthesia Complication: No Fluid Hydration Crystalloid volume administer (ml): 700 Total IV fluid infused: 700 Progress Note Anesthesia document: Postop Eval 1 completed: Yes
--- NOTE | 2024-11-06 12:28 | PCM.POSTANE2 ---
Anesthesia Postop Eval I Sum Postop Eval Completion status Anesthesia document: Postop Eval 1 completed: Yes Anesthesia Postop Eval I Summary Anesthesia Postop Eval I Summary: Anesthesia Postop Eval I: Assessment Summary Airway patent Yes 11/06/24 12:04 [email or web address] Spontaneous unlabored Yes 11/06/24 12:04 [email or web address] respirations Mental status Awake,Calm 11/06/24 12:04 [email or web address] nausea No 11/06/24 12:04 [email or web address] Vomiting No 11/06/24 12:04 [email or web address] Anesthesia Postop Eval I: Fluid Summary Crystalloid volume administer 700 11/06/24 12:04 [email or web address] (ml) Colloids volume administered ( ml) Blood Product volume administered (ml) Total IV fluid infused 700 11/06/24 12:04 [email or web address] Anesthesia Postop Eval I: Summary Notes Anesthesia Complication No 11/06/24 12:04 [email or web address] Anesthesia Complication Comment: Post-operative progress note Anesthesia: Postop Eval II Evaluation Mental status: Awake Pain Level: 0 nausea: No Vomiting: No Complications Anesthesia Complication: No
== END 2024-11-06 12:37 | disposition home or self-care (01) ==
LOC: EN 09:47 → AC 09:48
PROVIDERS: PCP Internal Medicine; Referring Provider Internal Medicine; Visit Provider Internal Medicine Gastroenterology
PROC: 0DJD8ZZ Inspection of Lower Intestinal Tract, Via Natural or Artificial Opening Endoscopic (ICD-10-PCS; CPT 45378; principal; 2024-11-06 10:40)
DX: Z12.11 Encounter for screening for malignant neoplasm of colon (principal); L12.1 Cicatricial pemphigoid; I48.20 Chronic atrial fibrillation, unspecified; K57.30 Diverticulosis of large intestine without perforation or abscess without bleeding; I10 Essential (primary) hypertension; E78.00 Pure hypercholesterolemia, unspecified; G47.30 Sleep apnea, unspecified; Z79.01 Long term (current) use of anticoagulants; Z79.899 Other long term (current) drug therapy
CPT/HCPCS: G0121; J2405